=== PATIENT | male | born 1975 | race American Indian/Alaskan Native ===

== ENCOUNTER 2017-08-06 21:42 | Emergency (ER) | payer SELFPAY ==
[2017-08-06] MEDS ORDERED: ZOFRAN IV ONE (22:41)
[2017-08-06] MEDS ORDERED: NACL 0.9% 1000 ML 1,000 ML IV ONE (22:41)
[2017-08-06] MEDS ORDERED: ALUM-MAG HYDROX-SIMETH 200-200-20MG/5ML PO ONE (22:48)
--- NOTE | 2017-08-06 22:52 | Emergency Department Report ---
ED General Adult HPI - General Chief complaint: Abdominal Pain Stated complaint: ABD PAIN Time Seen by Provider: 08/06/17 22:40 Source: patient Mode of arrival: Ambulatory Limitations: No Limitations - History of Present Illness Initial comments: Chief complaint is multiple History of present illness patient is diabetic recently became homeless is aware that his sugars are high he's now having some intermittent abdominal pain he also drinks he also has a history of drug abuse including meth and cocaine he is here for evaluation of abdominal pain he is also with depressed but denies suicidal or homicidal ideation -: Gradual Location: abdomen Quality: burning Improves with: medication Associated Symptoms: denies: chest pain, diaphoresis, fever/chills, headaches, loss of appetite, malaise, nausea/vomiting, rash, seizure, shortness of breath, syncope, weakness - Related Data Previous Rx's Medication Instructions Recorded Last Taken Type Famotidine [Pepcid] 20 mg PO DAILY #14 tablet 08/07/17 Unknown Rx Allergies Allergy/AdvReac Type Severity Reaction Status Date / Time No Known Allergies Allergy Unverified 08/06/17 22:02 ED Review of Systems ROS: Stated complaint: ABD PAIN Other details as noted in HPI Comment: All other systems reviewed and negative Constitutional: denies: diaphoresis, fever, malaise ENT: denies: epistaxis Respiratory: denies: SOB with exertion, SOB at rest, stridor, wheezing Cardiovascular: denies: chest pain, palpitations, dyspnea on exertion, orthopnea , edema, syncope, paroxysmal nocturnal dyspnea Gastrointestinal: abdominal pain, nausea. denies: vomiting, diarrhea, constipation, hematemesis, melena Neurological: denies: numbness, paresthesias, confusion, abnormal gait, vertigo , other Psychiatric: anxiety, depression. denies: auditory hallucinations, visual hallucinations, homicidal thoughts, suicidal thoughts ED Past Medical Hx - Past Medical History Hx Diabetes: Yes Hx Psychiatric Treatment: Yes (depression) Additional medical history: gastroparesis,neuropathy,PTSD - Surgical History Past Surgical History?: No Additional Surgical History: hernia repair - Social History Smoking Status: Never Smoker Substance Use Type: None, Cocaine - Medications Home Medications: Home Medications Medication Instructions Recorded Confirmed Last Taken Type Famotidine [Pepcid] 20 mg PO DAILY #14 tablet 08/07/17 Unknown Rx ED Physical Exam - General Limitations: No Limitations General appearance: alert, in no apparent distress - Head Head exam: Present: atraumatic, normocephalic, normal inspection - Eye Eye exam: Present: normal appearance, PERRL, EOMI. Absent: scleral icterus - ENT ENT exam: Present: normal exam, mucous membranes dry - Neck Neck exam: Present: normal inspection. Absent: meningismus - Respiratory Respiratory exam: Present: normal lung sounds bilaterally. Absent: respiratory distress, wheezes, rales, rhonchi, stridor, chest wall tenderness - Cardiovascular Cardiovascular Exam: Present: regular rate, normal rhythm, normal heart sounds - GI/Abdominal GI/Abdominal exam: Present: soft. Absent: guarding, rebound, rigid, mass, bruit , pulsatile mass, hernia - Extremities Exam Extremities exam: Present: normal inspection, full ROM. Absent: tenderness - Neurological Exam Neurological exam: Present: alert, oriented X3, CN II-XII intact, normal gait. Absent: motor sensory deficit ED Course Vital Signs 08/06/17 08/06/17 21:57 23:48 Temperature 98 F Pulse Rate 89 88 Respiratory 18 12 Rate Blood Pressure 118/75 O2 Sat by Pulse 100 Oximetry - Reevaluation(s) Reevaluation #1: 08/07/17 01:14 ED course patient was reevaluated he was given IV fluids he was also given some insulin his glucose was extremely high but his ketones are negative his bicarbonate was normal he is much improved in the ED tolerating by mouth he was given Mylanta as well as medication for gastritis this gave him good relief he is no surgical abdomen at this time is stable for outpatient follow-up ED Medical Decision Making - Lab Data Result diagrams: 08/06/17 22:59 08/06/17 22:59 - EKG Data EKG shows normal: sinus rhythm Rate: normal - EKG Data When compared to previous EKG there are: previous EKG unavailable - Medical Decision Making ED course patient was given IV fluids he was improved in the ED laboratory studies showed a glucose of greater than 400 patient did receive some insulin and some fluids and repeat Accu-Chek was normal at 110 he had negative ketones in the urine urine was negative for infection he had a normal white count and normal H&H normal platelet function his LFTs were essentially unremarkable he had a mildly elevated lipase he has no acute abdomen at this time that would suggest any further interventions were required he did refuse a CT of the abdomen he was informed of the risks including missed surgical process however clinically he does not seem to have a surgical abdomen vertical and discharge him he is also more worried about his depression at this time it sounds as if he is wanting to try to establish some type of outpatient follow-up so therefore discussed with mental health Critical care attestation.: If time is entered above; I have spent that time in minutes in the direct care of this critically ill patient, excluding procedure time. ED Disposition Clinical Impression: Poorly controlled diabetes mellitus, Gastritis Disposition: [id number] TO HOME OR SELFCARE Is pt being admited?: No Does the pt Need Aspirin: No Condition: Stable Instructions: Diabetes Mellitus Type 2 in Adults (ED) Additional Instructions: Return immediately to the ED if new or alarming symptoms Prescriptions: Famotidine [Pepcid] 20 mg PO DAILY #14 tablet Referrals: PRIMARY CARE, [Primary Care Provider] - 3-5 Days
[2017-08-06 23:27] LABS: Basophils % (Auto) 0.3 % (0.0-1.8); Eosinophils % (Auto) 0.9 % (0.0-4.3); Hematocrit 38.7 % (35.5-45.6); Hemoglobin 13.2 gm/dl (11.8-15.2); Mean Corpuscular HGB Conc 34 % (32-34); Mean Corpuscular Hemoglobin 30 pg (28-32); Mean Corpuscular Volume 88 fl (84-94); Platelet Count 310 K/mm3 (140-440); Red Blood Count 4.38 M/mm3 (3.65-5.03); White Blood Count 8.1 K/mm3 (4.5-11.0)
[2017-08-06 23:33] LABS: Anion Gap 18 mmol/L; BUN/Creatinine Ratio 16; Blood Urea Nitrogen 19 mg/dL (9-20); Calcium 9.1 mg/dL (8.4-10.2); Carbon Dioxide 28 mmol/L (22-30); Chloride 88.6 mmol/L (98-107); Glucose 413 mg/dL (75-100); Potassium 3.8 mmol/L (3.6-5.0); Sodium 131 mmol/L (137-145)
[2017-08-07 00:54] LABS: Bilirubin,Urine NEG (Negative); Blood,Urine SM (Negative); Ketones,Urine NEG (Negative); Leukocyte Esterase,Urine NEG (Negative); Nitrite,Urine NEG (Negative); Urobilinogen,Urine < 2.0 mg/dL (<2.0)
[2017-08-07 03:43] VITALS: BP 132/77
== END 2017-08-07 03:02 | disposition home or self-care (01) ==
LOC: ED 21:42
DX: K29.70 Gastritis, unspecified, without bleeding (principal); E11.65 Type 2 diabetes mellitus with hyperglycemia; E11.40 Type 2 diabetes mellitus with diabetic neuropathy, unspecified; F14.10 Cocaine abuse, uncomplicated
CPT/HCPCS: 36415; 80048; 81001; 82962; 83690; 85025; 93005; 93010; 96361; 96374; 96375; 99284; J2405; J7030; J1815